=== PATIENT | female | born 1995 | race Two or more races ===

== ENCOUNTER 2020-11-17 11:56 | Emergency (ER) | payer SELFPAY ==
[~2020-11-17] VITALS: Ht 154.9 cm; Wt 83.9 kg
[2020-11-17 12:38] VITALS: BP 111/62
[2020-11-17] MEDS ORDERED: KETOROLAC TROMETH 60MG/2ML VIAL IM ONE (13:45)
== END 2020-11-17 15:31 | disposition home or self-care (01) ==
LOC: ER 11:56
DX: M54.31 Sciatica, right side (principal)
CPT/HCPCS: 93971; 96372; 99284; J1885